=== PATIENT | male | born 1980 | race American Indian/Alaskan Native ===

== ENCOUNTER 2016-09-20 02:16 | Emergency (ER) | payer SELFPAY ==
[2016-09-20] MEDS ORDERED: PEPCID IV ONE (07:06)
[2016-09-20] MEDS ORDERED: BENADRYL IV ONE ×2 (07:06→08:19)
[2016-09-20] MEDS ORDERED: VISTARIL PO ONE (08:19)
[2016-09-20 10:32] VITALS: BP 112/66
--- NOTE | 2016-09-20 10:34 | Emergency Department Report ---
HPI - General Chief Complaint: Allergic Reaction Time Seen by Provider: 09/20/16 07:02 - HPI HPI: Chief complaint: Allergic reaction HPI: Patient states he began having a pruritic rash at 8:00 yesterday evening. Patient states that he ate 2 hamburgers around 12:45 AM and around 1:00 his lower lip started swelling. Patient does not know any new exposure and has never had a similar reaction to this. Patient does not take any blood pressure medications. Patient states he has not been taking any mtzi-ahh-[id number] medications either. Patient denies being stung or bitten by an insect or spider. Mode of arrival: private car Source: Patient Began: 8:00 last night worsening at 1:00 this morning Duration: Continuous Context: See above Quality: Pruritic Severity: 0 out of 10 Improved with: Didn't take any medications Worsened with: Seen to worsen after eating Associated signs and symptoms: See above ED Past Medical Hx - Past Medical History Previous Medical History?: No - Surgical History Past Surgical History?: No - Social History Smoking Status: Never Smoker Substance Use Type: Alcohol - Medications Home Medications: Home Medications Medication Instructions Recorded Confirmed Last Taken Type Prednisone [predniSONE 5 mg (6-Day 5 mg PO .TAPER #1 tab.ds.pk 09/20/16 Unknown Rx Pack, 21 Tabs)] hydrOXYzine PAMOATE [Vistaril] 25 mg PO Q6HR PRN #20 capsule 09/20/16 Unknown Rx ED Review of Systems ROS: Stated complaint: ALLERGIC REACTION Other details as noted in HPI ROS Constitutional: No fever ENT: No uri symptoms Cardiovascular: No chest pain Respiratory: No sob or cough GI: No nausea vomiting or diarrhea : No dysuria frequency or urgency, Skin: See HPI Neuro: No focal weakness or numbness Psych: No depression Joseph/lymph: No edema Physical Exam - Physical Exam Vital Signs: Vital Signs 09/20/16 09/20/16 09/20/16 02:24 04:36 04:41 Temperature 98.9 F Pulse Rate 98 H Respiratory 18 Rate Blood Pressure 129/78 128/85 128/85 O2 Sat by Pulse 98 98 Oximetry 09/20/16 09/20/16 09/20/16 04:44 04:45 04:51 Temperature Pulse Rate 93 H Respiratory 18 Rate Blood Pressure 126/74 126/74 O2 Sat by Pulse 97 98 98 Oximetry 09/20/16 09/20/16 09/20/16 04:55 05:00 05:05 Temperature Pulse Rate Respiratory Rate Blood Pressure 126/74 125/74 125/74 O2 Sat by Pulse 97 97 98 Oximetry 09/20/16 09/20/16 09/20/16 05:11 05:15 05:21 Temperature Pulse Rate Respiratory Rate Blood Pressure 125/74 123/75 123/75 O2 Sat by Pulse 97 97 97 Oximetry 09/20/16 09/20/16 09/20/16 05:25 05:30 05:35 Temperature Pulse Rate Respiratory Rate Blood Pressure 123/75 131/86 131/86 O2 Sat by Pulse 97 97 98 Oximetry 09/20/16 09/20/16 09/20/16 05:41 05:45 05:51 Temperature Pulse Rate Respiratory Rate Blood Pressure 131/86 131/75 131/75 O2 Sat by Pulse 97 98 97 Oximetry 09/20/16 09/20/16 05:55 06:01 Temperature Pulse Rate Respiratory Rate Blood Pressure 131/75 124/64 O2 Sat by Pulse 99 98 Oximetry Physical Exam: GENERAL: The patient is well-developed well-nourished . HEENT: Normocephalic. Atraumatic. Extraocular motions are intact. Patient has moist mucous membranes. Patient's lower lip is swollen. NECK: Supple. No meningitic signs are noted. There is no adenopathy noted. CHEST/LUNGS: Clear to auscultation. There is no respiratory distress noted. HEART/CARDIOVASCULAR: Regular. There is no tachycardia. There is no gallop rub or murmur. ABDOMEN: Abdomen is soft, nontender. Patient has normal bowel sounds. There is no abdominal distention. SKIN: There is a diffuse urticarial rash. There is no edema. There is no diaphoresis. NEURO: The patient is awake, alert, and oriented. The patient is cooperative. The patient has no focal neurologic deficits. The patient has normal speech. MUSCULOSKELETAL: There is no tenderness or deformity. There is no limitation range of motion. There is no evidence of acute injury. ED Course Vital Signs 09/20/16 09/20/16 09/20/16 02:24 04:36 04:41 Temperature 98.9 F Pulse Rate 98 H Respiratory 18 Rate Blood Pressure 129/78 128/85 128/85 O2 Sat by Pulse 98 98 Oximetry 09/20/16 09/20/16 09/20/16 04:44 04:45 04:51 Temperature Pulse Rate 93 H Respiratory 18 Rate Blood Pressure 126/74 126/74 O2 Sat by Pulse 97 98 98 Oximetry 09/20/16 09/20/16 09/20/16 04:55 05:00 05:05 Temperature Pulse Rate Respiratory Rate Blood Pressure 126/74 125/74 125/74 O2 Sat by Pulse 97 97 98 Oximetry 09/20/16 09/20/16 09/20/16 05:11 05:15 05:21 Temperature Pulse Rate Respiratory Rate Blood Pressure 125/74 123/75 123/75 O2 Sat by Pulse 97 97 97 Oximetry 09/20/16 09/20/16 09/20/16 05:25 05:30 05:35 Temperature Pulse Rate Respiratory Rate Blood Pressure 123/75 131/86 131/86 O2 Sat by Pulse 97 97 98 Oximetry 09/20/16 09/20/16 09/20/16 05:41 05:45 05:51 Temperature Pulse Rate Respiratory Rate Blood Pressure 131/86 131/75 131/75 O2 Sat by Pulse 97 98 97 Oximetry 09/20/16 09/20/16 05:55 06:01 Temperature Pulse Rate Respiratory Rate Blood Pressure 131/75 124/64 O2 Sat by Pulse 99 98 Oximetry - Reevaluation(s) Reevaluation #1: 09/20/16 Patient was medicated with Solu-Medrol, 25 mg of IV Benadryl and 20 mg of IV Pepcid. Patient improved with this did not completely resolve there for another 25 mg of IV Benadryl was given and 50 mg of oral Vistaril was given. Patient had significant improvement after this and states she is ready to go home. Critical care attestation.: If time is entered above; I have spent that time in minutes in the direct care of this critically ill patient, excluding procedure time. ED Disposition Clinical Impression: Allergic reaction Qualifiers: Encounter type: initial encounter Qualified Code(s): T78.40XA - Allergy, unspecified, initial encounter Disposition: DISCHARGED TO HOME OR SELFCARE Is pt being admited?: No Does the pt Need Aspirin: No Condition: Stable Instructions: Anaphylaxis (ED) Additional Instructions: You can take Zyrtec [id number] once a day for the next several days. Generic Zyrtec is fine. Return to the emergency department for any shortness of breath or swelling in your throat or tongue. Prescriptions: Prednisone [predniSONE 5 mg (6-Day Pack, 21 Tabs)] 5 mg PO .TAPER #1 tab.ds.pk hydrOXYzine PAMOATE [Vistaril] 25 mg PO Q6HR PRN #20 capsule PRN Reason: Itching Referrals: follow-up, an commercial pest control technician [Other] - 3-5 Days [facility] [Provider Group] - 3-5 Days ([facility] sees patient on a sliding scale based on their income.) Time of Disposition: 10:40
== END 2016-09-20 12:08 | disposition home or self-care (01) ==
LOC: ED 02:16
DX: T78.40XA Allergy, unspecified, initial encounter (principal)
CPT/HCPCS: 96374; 96375; 96376; 99283; J1200; J2930; Q0177